=== PATIENT | female | born 1940 | race Caucasian/White ===

== ENCOUNTER → 2017-01-16 | Outpatient (CLI) | payer MEDICARE, BC ==
[~2017-01-16] MED LIST: ASPIRIN325 MG PO; CALCIUM CHEWS PO; HCTZ12.5 MG PO; LOPRESSOR DPS12.5 MG PO; MAALOX DPS30 ML PO; MAGNESIUM400 MG PO; MULTIVITAMINS1 EAC1 PO; NIACIN1000 MG PO; PRILOSEC20 MG PO; SURFAK240 MG PO; VERAPAMIL ER120 M1 PO; VITAMIN B COMP1 EACH PO; VITAMIN B12-FO1 EACH PO; VITAMIN D31000 UNIT PO
== END | disposition home or self-care (01) ==
LOC: RAD.S 12-26 13:30
DX: M81.0 Age-related osteoporosis without current pathological fracture (principal); M85.89 Other specified disorders of bone density and structure, multiple sites